=== PATIENT | male | born 1960 | race Caucasian/White ===

== ENCOUNTER 2023-04-25 08:28 | Outpatient (CLI) | payer OTHER | END 2023-04-25 09:00 | disposition home or self-care (01) | LOC: MAMO-SONO 08:28 | PROVIDERS: ATTEND Obstetrics & Gynecology | DX: N63.0 Unspecified lump in unspecified breast (principal) ==

== ENCOUNTER 2024-05-14 07:28 | Outpatient (CLI) | payer BC | END 2024-05-14 07:50 | disposition home or self-care (01) | LOC: MAMO-SONO 07:28 | PROVIDERS: ATTEND Obstetrics & Gynecology | DX: N63.0 Unspecified lump in unspecified breast (principal) ==